=== PATIENT | male | born 1965 | race Caucasian/White ===

== ENCOUNTER 2023-01-18 15:28 | Emergency (ER) | payer MEDICAID ==
[2023-01-18] MEDS ORDERED: Take Home: Sulfamethoxazole/Trimethoprim 800-160 MG Tab, 6 Tab Pack PO ONE (15:42)
== END 2023-01-18 16:10 | disposition home or self-care (01) ==
LOC: DL.ED 15:28
DX: L03.90 Cellulitis, unspecified (principal)
CPT/HCPCS: 87070; 87077; 87186; 99282; 99283; A9270-GY